=== PATIENT | male | born 1960 | race African-American/Black ===

== ENCOUNTER 2018-07-04 11:45 | Emergency (ER) | payer OTHER ==
[~2018-07-04] VITALS: Ht 180.3 cm; Wt 113.4 kg
[2018-07-04 11:50] VITALS: BP 150/84
[2018-07-04 12:49] LABS: SODIUM 139 MMOL/L (135-145)
[2018-07-04 12:50] LABS: BUN/CREATININE RATIO 13; CALCIUM 9.3 MG/DL (8.5-10.1); CARBON DIOXIDE 23 MMOL/L (21-32); CHLORIDE 101 MMOL/L (98-107); CREATININE SERUM 0.92 MG/DL (0.60-1.30); GFR ESTIMATED > 60; GLUCOSE 83 MG/DL (70-105); POTASSIUM 3.8 MMOL/L (3.6-5.0)
[2018-07-04 13:03] VITALS: BP 150/84
[2018-07-04] MEDS ORDERED: TAMS0.4C2 (14:29)
[2018-07-04] MEDS ORDERED: RAMI10CA69 (14:29)
[2018-07-04] MEDS ORDERED: BRIM5DRO (14:29)
[2018-07-04] MEDS ORDERED: TADA20TA (14:29)
[2018-07-04] MEDS ORDERED: AMLO5TAB9 (14:29)
--- NOTE | 2018-07-04 15:16 | ED Upper Extremity ---
General Chief Complaint: Upper Extremity Stated Complaint: CORI HAND/ARM PAIN Nursing Triage Note: Patient states he was spreading hay when his right hand cramped and he was unable to straighten his fingers. A few minutes later, his left hand also began cramping. Patient is now able to move hands/fingers bilaterally, states left hand still feels "tight." Nursing Sepsis Screen: No Definite Risk Source: patient History of Present Illness Date Seen by Provider: Jul 04, 2018 Time Seen by Provider: 13:00 Initial Comments 58-year-old male who presents bilateral wrists and hands cramps after lifting heavy ismael of hay. Muscle cramps stop prior to the ED arrival. Patient has not had muscle cramps previously. No other acute symptoms or complaints Onset: just prior to arrival Pain/Injury Location: bilateral forearm, bilateral wrist, bilateral hand Method of Injury: other (heavy lifting) Allergies and Home Medications Allergies Coded Allergies: No Known Drug Allergies (Unverified , 07/04/18) Patient Home Medication List Home Medication List Reviewed: Yes Review of Systems Constitutional: no symptoms reported EENTM: no symptoms reported Respiratory: no symptoms reported Cardiovascular: no symptoms reported Genitourinary: no symptoms reported Skin: no symptoms reported Psychiatric/Neurological: No Symptoms Reported Past Kzqpbdj-Sbgicj-Letels Hx Past Med/Social Hx: Reviewed Nursing Past Med/Soc Hx Patient Social History Alcohol Use: Occasionally Uses Recreational Drug Use: No Smoking Status: Former Smoker Type Used: Cigarettes, Smokeless Tobacco Former Smoker, Quit: Nov 20, 2017 2nd Hand Smoke Exposure: No Recent Foreign Travel: No Contact w/Someone Who Travel: No Recent Infectious Disease Expo: No Recent Hopitalizations: No Physical Abuse: No Sexual Abuse: No Mistreated: No Fear: No Seasonal Allergies Seasonal Allergies: No Past Medical History Surgeries: No Respiratory: No Cardiac: Yes Hypertension Neurological: No Genitourinary: No Gastrointestinal: No Musculoskeletal: No Endocrine: No HEENT: Yes Glaucoma Loss of Vision: Denies Cancer: No Psychosocial: No Integumentary: No Blood Disorders: No Physical Exam Vital Signs Vital Signs - First Documented 07/04/18 11:50 Temp 99.0 Pulse 93 Resp 16 B/P (MAP) 150/84 (106) Pulse Ox 99 O2 Delivery Room Air Capillary Refill : Less Than 3 Seconds Height, Weight, BMI Height: 5'11.00" Weight: 250lbs. oz. 113.409642lu; BMI Method:Stated General Appearance: WD/WN Cardiovascular: normal peripheral pulses Elbow/Forearm: normal inspection, no evidence of injury, normal ROM, Right Wrist: Yes normal inspection, Yes non-tender, Yes normal ROM Progress/Results/Core Measures Results/Orders Lab Results Laboratory Tests Test 07/04/18 12:20 Range/Units Sodium Level 139 135-145 MMOL/L Potassium Level 3.8 3.6-5.0 MMOL/L Chloride Level 101 98-107 MMOL/L Carbon Dioxide Level 23 21-32 MMOL/L Anion Gap 15 H 5-14 MMOL/L Blood Urea Nitrogen 12 7-18 MG/DL Creatinine 0.92 0.60-1.30 MG/DL Estimat Glomerular Filtration Rate > 60 BUN/Creatinine Ratio 13 Glucose Level 83 70-105 MG/DL Calcium Level 9.3 8.5-10.1 MG/DL Magnesium Level 2.0 1.8-2.4 MG/DL My Orders Orders - QUETA RICAHRDSON DO Basic Metabolic Panel (07/04/18 12:17) Magnesium (07/04/18 12:17) Vital Signs/I&O 07/04/18 07/04/18 07/04/18 11:50 12:19 13:03 Temp 99.0 99.0 Pulse 93 93 Resp 16 16 B/P (MAP) 150/84 (106) 150/84 (106) Pulse Ox 99 99 O2 Delivery Room Air Room Air Blood Pressure Mean: 106 Departure Impression Primary Impression: Muscle cramp Disposition: 01 HOME, SELF-CARE Condition: Improved Departure-Patient Inst. Add. Discharge Instructions: Please increase fluids and avoid lifting and strenuous physical activity fluoresce the day. Follow-up with your PCP as needed. All discharge instructions reviewed with patient and/or family. Voiced understanding. QUETA RICHARDSON DO Jul 04, 2018 15:16
== END 2018-07-04 13:03 | disposition home or self-care (01) ==
LOC: EDUNIT# 11:45 → ER FS 11:48
DX: R25.2 Cramp and spasm (principal); I10 Essential (primary) hypertension; Z87.891 Personal history of nicotine dependence; X50.0XXA Overexertion from strenuous movement or load, initial encounter
CPT/HCPCS: 36415; 80048; 83735; 99282

== ENCOUNTER → 2019-01-12 | Outpatient (CLI) | payer OTHER ==
[~2019-01-12] MED LIST: AMLO5TAB9; BRIM5DRO; RAMI10CA69; TADA20TA; TAMS0.4C2
--- NOTE | 2019-01-12 11:09 | Diagnostic Imaging Report ---
INDICATION: COUGH, OTHER ABNORMALITIES OF BREATHING, DYSPNEA, ALLERGIC RHINITIS COMPARISON: None FINDINGS: Frontal and lateral views of the chest demonstrate normal heart size and pulmonary vascularity. The lungs are clear. There are no signs of infiltrate, pleural effusions or pneumothoraces. The visualized osseous structures show no acute abnormalities. IMPRESSION: 1. No acute process. No signs of infiltrates, effusions or pneumothoraces. Dictated by: Dictated on workstation # [id number]
== END ==
LOC: RAD 10:49
PROVIDERS: ATTEND Nurse Practitioner Family
DX: J30.9 Allergic rhinitis, unspecified (principal); T14.90XA Injury, unspecified, initial encounter
CPT/HCPCS: 71046

== ENCOUNTER → 2019-02-18 | Outpatient (CLI) | payer OTHER ==
[~2019-02-18] MED LIST changes: +RT-ALBUTEROL SULF 2.5 MG/3 ML PRE-MIX VIAL INH ONE
== END ==
LOC: RT 13:08
PROVIDERS: ATTEND Nurse Practitioner Family
DX: J30.9 Allergic rhinitis, unspecified (principal); T14.90XA Injury, unspecified, initial encounter
CPT/HCPCS: 94060; 94726; 94729

== ENCOUNTER 2019-03-04 13:21 | Outpatient (CLI) | payer OTHER ==
[~2019-03-04 13:21] MED LIST changes: -RT-ALBUTEROL SULF 2.5 MG/3 ML PRE-MIX VIAL INH ONE
== END 2019-03-04 13:41 | disposition home or self-care (01) ==
LOC: SLEEP 13:21
PROVIDERS: ATTEND Nurse Practitioner Family
DX: G47.9 Sleep disorder, unspecified (principal); R06.83 Snoring; R06.89 Other abnormalities of breathing